=== PATIENT | male | born 1975 | race Caucasian/White ===

== ENCOUNTER 2016-06-26 17:02 | Inpatient (IN) ==
[2016-06-26] MEDS ORDERED: 0.9 % Sodium Chloride 1,000 ML IVC ONE (20:49)
--- NOTE | 2016-06-26 20:49 | Emergency Department Note ---
Disposition Clinical Impression: Hyperglycemia, New onset type 2 diabetes mellitus, Acute hyponatremia Stroke Qualifiers: CVA mechanism: unspecified Qualified Code(s): I63.9 - Cerebral infarction, unspecified TIA (transient ischemic attack) Qualifiers: Transient cerebral ischemia type: unspecified Qualified Code(s): G45.9 - Transient cerebral ischemic attack, unspecified Disposition: Admitted As Inpatient Condition: Serious Time of Disposition: 21:29 General Adult HPI - General Chief complaint: ED Dizziness Stated complaint: dizzy, high blood sugar Source: patient Limitations: no limitations Nursing Notes Reviewed: Yes Vital Signs Reviewed: Yes - History of Present Illness HPI Narrative: Patient is a 41-year-old male who presents with undiagnosed diabetes and on the glucose check of 520 when he presented to the [place] and in [facility] earlier today secondary to acute onset of generalized weakness and lightheadedness that started at 0930 hrs. today. Patient states he woke up at 0 6:30 he was fine. Patient states this never happened before. Patient denies any pain anywhere. Patient states smokes half pack a day, admits to occasional all use, and denies illicit drug use. Denies any sick contacts. Patient states he has been coughing for the past 4 weeks secondary to postnasal drip with productive yellow sputum denies fevers. Patient admits to polydipsia and polyuria for some time now unable to give exact timeline. Patient received CT head which showed no intracranial hemorrhage, IV normal saline therapy, labs were drawn which showed negative for DKA but patient was sent to us for insulin therapy. Patient left hospital AGAINST MEDICAL ADVICE and drove here. Pain Scale: 0 - Related Data Home Medications Medication Instructions Recorded Confirmed Ascorbate Calcium [Vitamin C] 500 mg PO DAILY 06/26/16 06/26/16 Cholecalciferol (D-3) [Vitamin D] 1,000 unit PO DAILY 06/26/16 06/26/16 Multivitamin [Multi-Day Vitamins] 1 each PO DAILY 06/26/16 06/26/16 Potassium 99 mg PO DAILY 06/26/16 06/26/16 Ranitidine HCl [Zantac 75] 75 mg PO DAILY 06/26/16 06/26/16 Vitamin B Complex 1 each PO DAILY 06/26/16 06/26/16 Allergies Allergy/AdvReac Type Severity Reaction Status Date / Time No Known Allergies Allergy Verified 06/26/16 10:40 All systems ED: reviewed and negative except as stated. Constitutional: Reports: chills, weakness. Denies: fever ENT ED: Reports: congestion Cardiovascular: Denies: chest pain, palpitations, dyspnea on exertion Respiratory: Reports: cough, sputum production. Denies: dyspnea, wheezes Gastrointestinal: Denies: abdominal pain, nausea, vomiting Genitourinary: Reports: frequency Past Medical History - Past Medical History Attestation: Yes The following information was validated with the patient. Source: patient Medical history: Reports: GERD Psychiatric history: Reports: no psych history - Social History Smoking Status: Current every day smoker Smokeless Tobacco Status: No Alcohol use: Reports: rarely Drug use: Reports: none Physical Exam Vital Signs Temperature 98.2 F 06/26/16 17:11 Pulse Rate 72 06/26/16 17:11 Respiratory Rate 18 06/26/16 17:11 Blood Pressure 152/101 06/26/16 17:11 O2 Sat by Pulse Oximetry 97 06/26/16 17:11 Temperature 98.2 F 06/26/16 17:11 Pulse Rate 72 06/26/16 17:11 Respiratory Rate 18 06/26/16 17:11 Blood Pressure 152/101 06/26/16 17:11 O2 Sat by Pulse Oximetry 97 06/26/16 17:11 Oxygen Delivery Oxygen Delivery Room Air -General Appearance: Patient is a 41-year-old male who is alert and oriented 3 and in no acute distress. Patient lying comfortably in bed -Neurological exam: Cranial nerves II-12 intact, no focal deficits observed, strength equal 5/5 left upper extremity, 4.5/5 in right upper extremity, patient has difficult time holding his right lower extremity compared to his left lower extremity. Patient reports decreased sensation to touch in his right lower extremity compared to his left lower extremity. Reflexes 2/4 without clonus bilaterally - Head Head exam: atraumatic, normocephalic, normal inspection - Eye Eye exam: Present: normal appearance, PERRL, EOMI, negative for scleral icterus negative for conjunctival pallor - ENT ENT exam: normal exam, normal oropharynx, mucous membranes moist - Neck Neck exam: Present: normal inspection, full ROM, trachea midline, negative JVD - Chest Chest inspection: Present: Patient has bilateral equal rise and fall of chest wall. Non-tender to palpation. - Respiratory Respiratory exam: Clear to auscultation bilaterally without wheezes rales or rhonchi Cardiovascular Cardiovascular exam: Present: regular rate, normal rhythm, normal heart sounds, without murmurs rubs or gallops. - Abdominal Exam Abdominal exam: Present: soft, nondistended, Non-Tender light and deep palpation in all quadrants. Bowel sounds normoactive throughout all 4 quadrants. Negative for hyper or hyperresonance. - Extremities Exam Extremities exam: Present: normal inspection, full ROM - Back Exam Back exam: Present: normal inspection, full ROM. Absent: CVA tenderness (R), CVA tenderness (L) - Psychiatric Psychiatric exam: Present: normal affect, normal mood - Skin Skin exam: Present: warm, dry, intact, normal color - General Limitations: no limitations General appearance: alert Course - Reevaluation(s) Reevaluation #1: Patient presents as after being seen at [facility] earlier today. Patient is workup for generalized weakness that started this morning. Patient was found to have elevated sugars of 529 glucose check with leading to new onset diabetes. Patient required IV insulin therapy which could not be done there and was recommended to be transferred to us for therapy. Patient left there AGAINST MEDICAL ADVICE and had his daughter drive him over here. Patient received CT head which showed no intracranial hemorrhage, IV normal saline therapy, labs were drawn which showed negative for DKA but patient was sent to us for insulin therapy. Troponin negative and no anion gap acidosis negative hydroxybutyric acid, joint and the patient is not in DKA. Patient shows worsening neurological deficits since being seen earlier today at [place]. Assessment: Stroke versus TIA, new onset diabetes mellitus type 2. Plan: Repeat EKG, start patient on IV normal saline, patient's blood sugar recheck here as glucose of 220. 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 Patient sent for head CT, EKG taken check or any change in cardiac activity. Current plan is for admission for neurology follow-up secondary to stroke/TIA and treatment for hyperglycemia. Time: 21:17 - Consultations Consultation #1: Dr. Patterson has accepted for admission at 2127 hrs. Time: 21:29 Vital Signs Temperature 98.2 F 06/26/16 17:11 Pulse Rate 72 06/26/16 17:11 Respiratory Rate 18 06/26/16 17:11 Blood Pressure 152/101 06/26/16 17:11 O2 Sat by Pulse Oximetry 97 06/26/16 17:11 Temperature 98.4 F 06/27/16 00:07 Pulse Rate 63 06/27/16 00:07 Respiratory Rate 18 06/27/16 00:07 Blood Pressure 154/98 06/27/16 00:07 O2 Sat by Pulse Oximetry 97 06/27/16 00:07 Oxygen Delivery Oxygen Delivery Room Air Medical Decision Making - Medical Records Medical records reviewed: Yes I reviewed the patient's medical records. Labs taken - Lab Data Lab results narrative: Intake & Output 06/23/16 06/24/16 06/25/16 06/26/16 23:59 23:59 23:59 23:59 Weight 127.913 kg Laboratory Results - last 48 hr 06/26/16 17:20 POC Glucose 235 H Lab Results 06/26/16 Range/Units 17:20 POC Glucose 235 H (58-89) Attestation Statement - Attestation Attestation: I, Drew Black, examined this patient and my medical decision-making was reviewed with the PERL DEVELOPER/PA/Advanced Practice Nurse/Resident Physician. I agree with the documented findings, disposition and treatment plan as described except to the extent set forth below. 41-year-old male presents to the emergency department with concerns of lightheadedness and elevated blood sugar. Patient was not evaluated at a different emergency department this morning and was diagnosed with possible CVA and hyperglycemia and recommended that he transferred to [facility] for further evaluation with MRI and neurology. Patient refused and returned home however his symptoms did not improve. Patient states that he has slurred speech, weakness and paresthesias of the right upper extremity and the right lower extremity. There had symptoms like this before. Is not intoxicated. No recent trauma. Onset of symptoms a 6:30 AM. Physical exam the patient has weakness of the right upper extremity and right lower extremity at 3 out of 5 compared to the left is 5 out of 5. Patient has mild right-sided facial droop. He has slurred speech on exam. Pt is outside of the window for TPA. Patient given aspirin at emergency department this morning. CT of the head is negative for acute bleed. Patient be admitted for likely CVA.
[2016-06-26] MEDS: Nicotine 14 MG PATCH.TD24 TD SCH (22:55)
[2016-06-27] MEDS ORDERED: Naloxone 0.4 MG/ML INJ IVP PRN (01:13)
[2016-06-27] MEDS ORDERED: D5% in Water 1,000 ML IVC PRN (01:13)
[2016-06-27] MEDS ORDERED: *HR* Promethazine 25 MG/ML VIAL IVP PRN (01:13)
[2016-06-27] MEDS ORDERED: *HR* Dextrose 50 % in Water (Syg) 50 ML SYRINGE IVP PRN (01:13)
[2016-06-27] MEDS ORDERED: Dextrose Gel 15 GM PO PRN ×2 (01:13)
--- NOTE | 2016-06-27 01:46 | Internal Med History&Physical ---
<Isabella Littlejohn - Last Filed: 06/27/16 05:45> Date of Encounter: 06/27/16 Time of Encounter: 01:29 Assessment and Plan (1) Stroke Current visit: Yes Status: Suspected CThead - for acute bleed, due to symptoms and risk factors likely thromboembolic vs tia BP 154/98 glucose 520>235, A1C 12.7 MRI ECHO carotid Doppler asa atorvastatin glucose monitoring lipid panel supportive care Qualifiers: CVA mechanism: unspecified Qualified Code(s): I63.9 - Cerebral infarction, unspecified (2) New onset type 2 diabetes mellitus Current visit: Yes Status: Acute glucose 520>230, A1C 12.7 insulin sliding scale NPO for testing, then diabetic diet recommend outpt follow up for close monitoring and diabetes control (3) Hypertension Current visit: Yes Status: Acute BP 154/98 permissive htn for now Qualifiers: Hypertension type: essential hypertension Qualified Code(s): I10 - Essential (primary) hypertension (4) GERD (gastroesophageal reflux disease) Current visit: Yes Status: Acute ppi Qualifiers: Esophagitis presence: without esophagitis Qualified Code(s): K21.9 - Gastro -esophageal reflux disease without esophagitis (5) Tobacco abuse Current visit: Yes Status: Acute nicotine patch prn (6) Obesity, morbid, BMI 40.0-49.9 Current visit: Yes Status: Acute (7) Hyperglycemia Current visit: Yes Status: Acute 520>235 sliding scale close glucose monitoring (8) Acute hyponatremia Current visit: Yes Status: Acute 134 monitor Internal Medicine - H&P: HPI Chief complaint: weakness Admitted From: Home Plans for Post Hospital Care: Home History of present illness: Mr. Rodriguez is a 41 year old male c/o weakness. PMHx GERD, on and off smoker of 1 /2-1ppd for about 15 years, does not see PCP. Pt c/o right sided weakness, with dizziness starting in the morning on . Pt states he woke up around 6: 30 am feeling fine, as he was getting ready for work he started getting a headache, feeling dizzy and tingling around his mouth and was having difficulty getting dressed secondary to weakness. Pt thought his blood sugar might my low, had breakfast and drank a pop which made symptoms worse. He presented to [place] [facility]. After being given fluids he states symptoms did not fully resolve but he felt better so he left AMA. At home a few hours later symptoms were worse with increased weakness from earlier in the day and slurring of his speech. Pt states he has never had anything like this before, but has had some numbness and metallic taste in his mouth for about one week which he attributed to his reflux. Pt does not see a physician and has never had any previous diagnosis. Pt continues to have right sided weakness, and decreased sensation and difficulty controlling his r arm. headache has somewhat resolved, continues to have some dizziness and rightsided numbness. Pt denies LOC, loss of vision, chest pain, palpitation, SOB, change in urinary or bowel habits. Past Med Surg Social Fam HX - Past Medical History Medical history: GERD Psychiatric history: no psych history - Past Surgical History Surgical History: herniorrhaphy - Social History Smoking Status: Current every day smoker Packs per day: 1/2-1ppd Smokeless Tobacco Status: No Alcohol use: rarely Drug use: none Occupational status: employed Current living situation: Home Activity Level: Independent ambulation Recent Out of Country Travel Within the Last 8 Weeks: No Exposure or Possible Exposure to Illness During Travel: No - Family History Mother Living Status: Still Living Hx Family Cardiac Disorders: Yes (CHF HTN HLD) Hx Family Endocrine Disorder: Yes (DM) Internal Medicine - H&P: Meds Ascorbate Calcium [Vitamin C] 500 mg PO DAILY 06/26/16 [History] Cholecalciferol (D-3) [Vitamin D] 1,000 unit PO DAILY 06/26/16 [History] Multivitamin [Multi-Day Vitamins] 1 each PO DAILY 06/26/16 [History] Potassium 99 mg PO DAILY 06/26/16 [History] Ranitidine HCl [Zantac 75] 75 mg PO DAILY 06/26/16 [History] Vitamin B Complex 1 each PO DAILY 06/26/16 [History] Allergies No Known Allergies Allergy (Verified 06/26/16 10:40) All Systems PM: A 10-system review of systems was performed and is negative for pertinent findings except as documented above in the HPI. - Constitutional Constitutional: fatigue, weakness, weight loss (80lb weightloss in past 4 months ), no falls - EENT Eyes: no blurry vision, no change in vision, no loss of vision, no seeing flashes - Cardiovascular Cardiovascular ROS IM: lightheadedness, no chest pain, no diaphoresis, no dyspnea, no dyspnea on exertion, no edema, no palpitations - Respiratory Respiratory: no cough, no dyspnea, no dyspnea on exertion - Gastrointestinal Gastrointestinal: no abdominal pain, no diarrhea, no hematemesis, no hematochezia, no melena, no nausea, no vomiting - Genitourinary Genitourinary ROS male: no dysuria, no hematuria, no urinary frequency, no urinary hesitancy, no urinary urgency - Musculoskeletal Musculoskeletal ROS IM: muscle weakness, numbness - Integumentary Integumentary IM: no rash, no unusual bruising - Neurological Neurological ROS: abnormal gait, abnormal movements, abnormal speech, confusion , dizziness, focal weakness, headache(s), lack of coordination, numbness, vertigo, weakness, no abnormal hearing - Constitutional Vitals: Temp Pulse Resp BP Pulse Ox 98.4 F 63 18 154/98 97 06/27/16 00:07 06/27/16 00:07 06/27/16 00:07 06/27/16 00:07 06/27/16 00:07 General appearance: Present: A&O X 3, no acute distress, obese, answers questions appropriately - Head Head exam: Present: atraumatic, normocephalic - Eye Eye exam: Present: EOMI, PERRL, conjuntiva pink, sclera anicteric Pupils: Present: PERRL - ENT ENT exam: Present: mucous membranes moist - Neck Neck exam general surgery: Present: supple, trachea midline. Absent: lymphadenopathy - Respiratory Respiratory exam: Present: CTAB. Absent: accessory muscle use, rales, rhonchi, wheezes - Cardiovascular Cardiovascular exam: Present: RRR, +S1, +S2. Absent: diastolic murmur, gallop, rubs, systolic murmur - GI/Abdominal GI/Abdominal exam: Present: normal bowel sounds, soft, no peritoneal signs. Absent: distended, tenderness - Extremities Exam Extremities exam: Present: warm, radial pulses palpable and symetrical. Absent : calf tenderness, cyanotic, pedal edema - Back Exam Back exam: Absent: CVA tenderness (L), CVA tenderness (R) - Neurological Exam Neurological exam: Present: motor sensory deficit, oriented X3, facial droop ( Rsided), speech deficit - Expanded Neurological Exam Neurological exam expanded: Present: expressive aphasia, memory loss-recent event Patient oriented to: Present: person, place, time Speech: Present: expressive aphasia, garbled, slurred Cranial Nerves: EOM's intact PM: Normal, gag reflex PM: Normal, nystagmus PM: Normal, tongue deviation PM: Normal Ataxia: Present: yes Cerebellar function: finger to nose: Abnormal Right, heel to [place]: Abnormal Right Upper motor neuron: Lc neglect: Abnormal Right Sensory exam: LE 2 point discrimination: Abnormal Right, lower extremity light touch: Abnormal Right, lower extremity pin prick: Abnormal Right, lower extremity temperature: Abnormal Right, UE 2 point discrimination: Abnormal Right , upper extremity light touch: Abnormal Right, upper extremity pin prick: Abnormal Right, upper extremity temperature: Abnormal Right Neuro motor strength exam: LUE: 5, RUE: 3, LLE: 5, RLE: 4 DTR: patellar (L): 2+, patellar (R): 2+ Coma Scale Eye Opening: Spontaneous Coma Scale Motor Response: Obeys Commands Coma Scale Verbal Response: Oriented Coma Scale Total: 15 - Psychiatric Psychiatric exam: Present: normal affect, normal mood - Skin Skin exam: Present: dry, intact <Mudduluru,Madhusudha R - Last Filed: 06/27/16 12:35> Date of Encounter: 06/27/16 Internal Medicine - H&P: HPI History of present illness: Mr. Rodriguez is a 41 year old male All Systems PM: A 10-system review of systems was performed and is negative for pertinent findings except as documented above in the HPI. - Constitutional Vitals: Temp Pulse Resp BP Pulse Ox 98.3 F 65 18 138/83 96 06/27/16 07:00 06/27/16 07:00 06/27/16 07:00 06/27/16 07:00 06/27/16 08:37 Internal Med - H&P Results - Labs CBC & Chem 7: 06/27/16 05:39 Labs: BMP 06/27/16 05:39 Sodium 137 Potassium 4.1 Chloride 106 Carbon Dioxide 22 BUN 16 Creatinine 1.01 Glucose 337 H Calcium 8.5 L Cardiac Enzymes 06/27/16 Range/Units 05:39 Troponin I 0.00 (0-0.03) ng/mL Liver Function 06/27/16 Range/Units 05:39 Total Bilirubin 1.1 D (0.2-1.2) mg/dL AST 27 (5-34) Units/L ALT 48 (0-55) Units/L Alkaline Phosphatase 72 (38-126) Units/L Albumin 3.0 L (3.5-5.0) g/dL - Attending Attestation I performed a history and physical examination of the patient and discussed management with the resident. I reviewed the residents notes and agree with the documented findings and plan of care. 41 Y/M with h/o GERD, presents with right sided weakness, confusion and odd speech. O/E: right Upper (3/5) and lower extremity (4/5) weakness. CT head: No acute intracranial abnormalities. Labs: Glucose: 520 in the ER at [facility]. A1C: 12.7%. EKG: NSR. A/P: CVA: MRI brain / MRA; Echo; Carotid Doppler; lipid panel. ASA; Statin; Neurology consult, PT consult. New diagnosis of DM:Diabetes education; Insulin sliding scale, possibly can go home with oral meds. Needs f/ u with PCP for management of DM
[2016-06-27] MEDS: 0.9 % Sodium Chloride 1,000 ML IVC SCH ×3 (01:52→15:30)
[2016-06-27 02:17] LABS: INR 1.2; Prothrombin Time 13.2 Seconds (9.4-12.1)
[2016-06-27 02:19] LABS: Activated Partial Thrombo Time 30.1 Seconds (26.0-36.0)
[2016-06-27] MEDS ORDERED: Insulin LISPRO 300 UNITS/3 ML VIAL SQ SCH (06:00)
[2016-06-27 06:35] LABS: Alanine Aminotransferase 48 Units/L (0-55); Alkaline Phosphatase 72 Units/L (38-126); Aspartate Amino Transferase 27 Units/L (5-34); BUN/Creatinine Ratio 16 (6-26); Bilirubin,Total 1.1 mg/dL (0.2-1.2); Blood Urea Nitrogen 16 mg/dL (8-26); Calcium 8.5 mg/dL (8.6-10.8); Carbon Dioxide 22 mEq/L (19-29); Chloride 106 mEq/L (98-109); Chol/HDL Ratio 5.8 (0-4.9); Cholesterol 174 mg/dL (< 200); Glucose 337 mg/dL (70-99); HDL Cholesterol 30 mg/dL (40-59); LDL Cholesterol,Calculated 95 mg/dL (0-99); Magnesium 1.6 mg/dL (1.6-2.6); Osmolality,Calculated 298 (280-300); Potassium 4.1 mEq/L (3.5-4.5); Sodium 137 mEq/L (136-145); Triglycerides 243 mg/dL (< 150); eGFR For African Americans > 60 (> 60); eGFR For Non-African Americans > 60 (> 60)
[2016-06-27] MEDS: *HR* Enoxaparin 40 MG/0.4 ML SYRINGE SQ SCH (06:55)
[2016-06-27] MEDS: Nicotine 14 MG PATCH.TD24 TD SCH (08:53)
[2016-06-27] MEDS ORDERED: Pantoprazole 40 MG VIAL IVP SCH (09:00)
--- NOTE | 2016-06-27 09:26 | Event Note ---
Date of Encounter: 06/27/16 Time of Encounter: 07:15 I performed a history and physical examination of the patient and discussed management with the resident (Dr Littlejohn). I reviewed the residents notes and agree with the documented findings and plan of care. 41 Y/M with h/o GERD, presents with right sided weakness, confusion and odd speech. O/E: right Upper (3+/5) and lower extremity (4/5) weakness. CT head: No acute intracranial abnormalities. Labs: Glucose: 520 in the ER at [facility]. A1C: 12.7%. EKG: NSR. A/P: CVA: MRI brain / MRA; Echo; Carotid Doppler; lipid panel. ASA; Statin; Neurology consult, PT/speech therapy consult. New diagnosis of DM:Diabetes education; Insulin sliding scale, possibly can go home with oral meds. Needs f/u with PCP for management of DM
--- NOTE | 2016-06-27 11:12 | Event Note ---
Date of Encounter: 06/27/16 Time of Encounter: 11:05 41/M PCP: No PCP Brief PMH : Healthy person except morbid obesity. 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 HPI: Patient was experiencing generalized fatigue for more than 3 days. He was experiencing worsening dizziness which was persistent in nature since yesterday afternoon. His mother insisted him to go to emergency room at [facility]. Patient was seen in the emergency room and [facility] and recommended transfer to this hospital. Patient signed out AMA from emergency room at [facility]. Physician from emergency room called patient to update results. At that point a conversation between the physician and patient was not appropriate. The physician strongly suspected that patient has possibility of stroke and that is the reason they asked patient to come back to emergency room. Patient was reevaluated in the emergency room at [facility] and was sent to this hospital for further management. Patient was evaluated in the emergency room and admitted for possibility of a CVA. Vitals: Afebrile, 65/m, 18 breaths per minute, 138/83 and 96% on room air On examination: I have examined this patient at length. Examination of her, eyes, ears, nose, throat, cervical area and oral cavity does not show any abnormality. Examination of heart is within normal limit. I did not hear any abnormal murmur. Lung sounds are bilaterally equal. Examination of abdomen is benign. Brief neurological examination is suggestive of a right upper extremity power 3/ 5, left lower extremity power 4/5. Sensation intact. No bladder or bowel incontinence. DTR ++. Imaging: CT head: Negative for bleed Noted that MRI is suggestive of an acute left pontine infarct. Echo: Pending Ultrasound carotid: Pending Labs: POC: 488 Assessment and plan: Acute left pontine infarct: Out of TPA window. Newly diagnosed possible type 2 diabetes mellitus. Hyperlipidemia. Morbid obesity Plan: -ASA/statin -PT/OT/ST -Awaiting for imaging studies. -Neurology evaluation: Young stroke workup -Sliding scale for now. for newly onset diabetes. -We will follow neurology recommendations. -DVT prophylaxis: Lovenox Medical decision making: This patient has [id number] risk of worsening in spite of being on appropriate medication.
--- NOTE | 2016-06-27 12:45 | Neurology - Consult Note ---
Date of Encounter: 06/27/16 Time of Encounter: 12:42 Assessment and Plan (1) Stroke Current Visit: Yes Status: Suspected Patient has DM, HTN, morbid obesity, hypertriglyceride, who developed acute onset of right hemiparesis, hemiparesthesia, speech difficulty, and balance difficulty as a result of the right sided weakness. MRI of brain confirmed left pontine infarct, likely secondary to small vessel lacunar infarct. Will certainly need stroke work up, including echocardiography, carotid artery duplex. Since the stroke occurred within the territory of posterior circulation would also recommend CT Angio of brain as well. Treat hyperlipidemia. Weight loss, may need sleep study as outpatient. Will keep on Aspirin Qualifiers: CVA mechanism: unspecified Qualified Code(s): I63.9 - Cerebral infarction, unspecified History of Present Illness Chief complaint: right sided weakness, dizziness HPI: Mr. Rodriguez is a 41 year old male with PMH significant for morbid obesity, newly found HTN DM hyperlipidemia who developed acute onset of right sided weakness, dizziness and difficulty walking. Patient woke up yesterday morning with right sided weakness and dizziness, described as difficulty walking. initial CT of head showed no acute intracranial abnormality. Today MRI of brain showed acute left pontine infarct. Patient still has weakness to the right arm and leg, and still dizzy. No vertigo however. has no significant medical history until now. 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 Past Med Surg Social Fam HX - Past Medical History Medical history: GERD Psychiatric history: no psych history - Past Surgical History Surgical History: herniorrhaphy - Social History Smoking Status: Current every day smoker Packs per day: 1/2-1ppd Smokeless Tobacco Status: No Alcohol use: rarely Drug use: none - Family History Mother History Unknown: Yes Name: Yadira Castillo Age: 60 Living Status: Still Living Hx Family Cardiac Disorders: Yes (CHF HTN HLD) Hx Family Endocrine Disorder: Yes (DM) Medications and Allergies Ascorbate Calcium [Vitamin C] 500 mg PO DAILY 06/26/16 [History] Cholecalciferol (D-3) [Vitamin D] 1,000 unit PO DAILY 06/26/16 [History] Multivitamin [Multi-Day Vitamins] 1 each PO DAILY 06/26/16 [History] Potassium 99 mg PO DAILY 06/26/16 [History] Ranitidine HCl [Zantac 75] 75 mg PO DAILY 06/26/16 [History] Vitamin B Complex 1 each PO DAILY 06/26/16 [History] Allergies No Known Allergies Allergy (Verified 06/26/16 10:40) All Systems: A 10-system review of systems was performed and is negative for pertinent findings except as documented above in the HPI. Physical Examination - Vital Signs Vital Signs: Initial Vital Signs Temp Pulse Resp BP Pulse Ox 98.2 F 72 18 152/101 97 06/26/16 17:11 06/26/16 17:11 06/26/16 17:11 06/26/16 17:11 06/26/16 17:11 - Constitutional General appearance: comfortable - Neurologic Sensorimotor examination: other (reduced pinprick and touch sensation to the right face, arm and leg) Motor examination - right side: 4/5: deltoids, biceps, triceps, wrist flexion, wrist extension, cone machine operator, hip flexors, tibialis Anterior, quadriceps, toe extension (EHL), plantarflexion Motor examination - left side: 5/5: deltoids, biceps, triceps, wrist flexion, wrist extension, hip flexors, cone machine operator, quadriceps, tibialis Anterior, toe extension (EHL), plantarflexion Detailed sensory examination: other (Reduced pinprick, touch sensation to the right side) Reflexes: Biceps: 1+, Triceps: 1+, Brachioradialis: 1+, Patella: 1+, Achilles: 1 + Mental Status Examination: awake, alert, oriented to person, oriented to place, oriented to time, follows commands appropriately, answers questions appropriately, no agnosia, no aphasia, no aproxia Cranial nerve examination: PERRL, EOMI, visual quintanilla intact, corneal reflexes brisk symmetrically, sensory to face intact (reduced pinprick to the right face) , no facial asymmetry is present (right facial flattening), hearing is intact symmetrically, soft palate elevates bilaterally upon phonation, gag reflex intact, tongue protrudes midline (to the right side) Results - Laboratory Findings CBC and BMP: 06/27/16 05:39 Abnormal lab findings: Abnormal lab results PT 13.2 Seconds (9.4-12.1) H 06/27/16 01:44 Glucose 337 mg/dL (70-99) H 06/27/16 05:39 POC Glucose 320 (58-89) H 06/27/16 06:02 Calcium 8.5 mg/dL (8.6-10.8) L 06/27/16 05:39 Albumin 3.0 g/dL (3.5-5.0) L 06/27/16 05:39 Albumin/Globulin Ratio 1.0 (1.1-2.2) L 06/27/16 05:39 Triglycerides 243 mg/dL (< 150) H 06/27/16 05:39 VLDL Cholesterol, Calc 49 mg/dL (< 31) H 06/27/16 05:39 HDL Cholesterol 30 mg/dL (40-59) L 06/27/16 05:39 Cholesterol/HDL Ratio 5.8 (0-4.9) H 06/27/16 05:39 Consult Discharge Plan - Plan Referrals: NO,PCP [Primary Care Provider] -
[2016-06-27] MEDS: Aspirin Enteric Coated 81 MG Tablet PO SCH (13:09)
[2016-06-27] MEDS: Insulin LISPRO 300 UNITS/3 ML VIAL SQ SCH ×3 (13:09→22:08)
--- NOTE | 2016-06-27 16:24 | ECHO - Doppler Report ---
Echo with Saline Contrast Name: Virgilio Rodriguez Date of Study: 06/27/2016 Date: 1975 Ht: 71.0 in Medical Record#: [id number] Age: 41 Wt: 306.0 lb Gender: Male BSA: 2.53 Order #: [id number] Location: [facility] Room #: 2NE34 Reading Physician: Joyce Torres DO Tax Intern: Aram Weinberg RUT Ordering Physician: Isabella Littlejohn DO Primary Physician: None Indications: Cerebrovascular Accident Impressions: LVEF 60%. Normal left ventricular size and systolic function. Normal diastolic function of the left ventricle. Normal right ventricular size and function. Mild pulmonic regurgitation. No pulmonary hypertension. No PFO with saline contrast. Left Ventricular Wall Motion: Rest Echo Findings All wall segments showed normal motion. Findings: Study Quality * Technically adequate exam. ECG Findings * Normal sinus rhythm. Left Ventricle * LVEF 60%. * Normal LV chamber size, wall thickness and function. * Normal left ventricular diastolic function. Left Atrium * Normal left atrial size. Mitral Valve * Normal mitral valve structure. * No mitral stenosis. * No mitral regurgitation. Aorta * Normally sized aortic root. Tricuspid Valve * No tricuspid regurgitation. * Normal tricuspid valve structure. Pulmonic Valve * Pulmonic valve is not well visualized. * No pulmonic stenosis. * Mild pulmonic regurgitation. Pulmonary Artery * Pulmonary artery not well visualized. Aortic Valve * Aortic valve not well visualized. * No aortic stenosis. * No aortic regurgitation. Right Ventricle * Normal right ventricular structure and function. Right Atrium * Normal right atrial size. Interatrial Septum * No PFO with saline contrast. IVC * The IVC is not well evaluated. Pericardium * There is no pericardial effusion present. History Diabetes History of Smoking Years 32 Packs 1 Contrast: Agitated saline 20 ml. Measurements: BP: 147/ 81 2D Normal Values RVIDd: 3.10 cm <2.7 cm IVSd: 1.11 cm 0.6 - 1.0 cm LVIDd: 4.68 cm 3.7 - 5.6 cm LVPWd: 1.06 cm 0.6 - 1.1 cm LVIDs: 3.21 cm 1.5 - 3.6 cm AO: 2.60 cm < 4.0 cm LA: 3.90 cm 2.0 - 4.0cm %FS: 31.40 cm >25 % LA volume: 40 Mitral Valve Peak E:1.12 m/sec Peak A:.59 m/sec E/A Ratio:1.9 Peak E' Lat Rikki:11.7 cm/s Peak E' Med Rikki:9.9 cm/s E/E' Lat Ratio:9.6 E/E' Med Ratio:11.3 Tricuspid Valve TV Regurg Peak Grad: 8.00mmHg TV Regurg Peak Rikki: 1.44m/sec Updated by Joyce Torres on 06/27/2016 4:07:53 PM electronically signed on 06/27/2016 4:18:56 PM with status of Final Wall Motion Newman: 1=Normal, 2=Hypokinesis, 3=Akinesis, 4=Dyskinesis, 5=Aneurysmal, 6=Hyperkinetic, X=Not Visualized (Blank)=Missing
--- NOTE | 2016-06-28 05:35 | Electrocardiograph Report ---
[address] [address] Test Date: 2016-06-26 Pat Name: Virgilio Rodriguez Department: 104 Room: 2N4 Gender: M Sap Technical Developer: YANIRA : 1975 Requested By: David Hull Order Number: [id number] Reading MD: Rad Butterfield MD Measurements Intervals [place] Rate: 61 P: 43 SC: 164 QRS: 26 QRSD: 100 T: 13 QT: 409 QTc: 413 Interpretive Statements SINUS RHYTHM Electronically Signed On 06-28-2016 5:34:26 EDT by Rad Butterfield MD
[2016-06-28 05:49] LABS: Basophils # 0.1 K/mcL (0.0-0.2); Basophils % 0.6 %; Eosinophils # 0.2 K/mcL (0.0-0.6); Eosinophils % 2.1 %; Hemoglobin 15.2 g/dL (12.9-16.9); Immature Granulocytes % 1.4 % (0-4); Lymphocytes # 2.2 K/mcL (0.6-4.6); Mean Corpuscular HGB Conc 33.8 g/dL (31.6-35.5); Mean Corpuscular Hemoglobin 28.7 pg (28.0-33.3); Mean Corpuscular Volume 85.1 fL (83.0-100.0); Mean Platelet Volume 10.6 fL (9.4-12.4); Monocytes # 0.7 K/mcL (0.0-1.3); Monocytes % 7.7 %; Neutrophils # 5.4 K/mcL (1.6-8.9); Platelet Count 158 K/mcL (140-400); Red Blood Count 5.29 M/mcL (4.19-5.50); Red Cell Distribution Width 12.4 % (11.5-14.5); Segmented Neutrophils % 62.2 %
[2016-06-28 06:09] LABS: Alanine Aminotransferase 47 Units/L (0-55); Albumin 2.9 g/dL (3.5-5.0); Alkaline Phosphatase 66 Units/L (38-126); Aspartate Amino Transferase 31 Units/L (5-34); BUN/Creatinine Ratio 17 (6-26); Blood Urea Nitrogen 13 mg/dL (8-26); Calcium 8.2 mg/dL (8.6-10.8); Carbon Dioxide 20 mEq/L (19-29); Chloride 110 mEq/L (98-109); Globulin 2.9 g/dL (2.4-3.5); Glucose 240 mg/dL (70-99); Osmolality,Calculated 296 (280-300); Potassium 3.9 mEq/L (3.5-4.5); Sodium 139 mEq/L (136-145); Total Protein 5.8 g/dL (6.0-8.3); eGFR For African Americans > 60 (> 60); eGFR For Non-African Americans > 60 (> 60)
[2016-06-28] MEDS: *HR* Enoxaparin 40 MG/0.4 ML SYRINGE SQ SCH (06:31)
[2016-06-28] MEDS: Aspirin Enteric Coated 81 MG Tablet PO SCH (07:57)
[2016-06-28] MEDS: Nicotine 14 MG PATCH.TD24 TD SCH (07:57)
[2016-06-28] MEDS: Famotidine 20 MG TABLET PO SCH (07:57)
[2016-06-28] MEDS: Insulin LISPRO 300 UNITS/3 ML VIAL SQ SCH ×4 (07:58→20:34)
--- NOTE | 2016-06-28 10:25 | Neurology Progress Note ---
Date of Encounter: 06/28/16 Time of Encounter: 10:23 Assessment and Plan (1) Stroke Current Visit: Yes Status: Suspected Qualifiers: CVA mechanism: unspecified Qualified Code(s): I63.9 - Cerebral infarction, unspecified Subjective Principal diagnosis: weakness, dizziness, headache Interval history: Pt seen and examined. He states he is doing much better today and is nearly back to full strength and denies any numbess/tingling. He also states his speech is "95%" better but still hears "saliva sounds" when talking. He was able to ambulate early today with minimal difficulty. Has no issues with chest pain, nausea, vomiting, shortness of breath. Objective - Constitutional Vitals: Temp Pulse Resp BP Pulse Ox 98.3 F 51 16 136/75 97 06/28/16 07:00 06/28/16 07:00 06/28/16 07:00 06/28/16 07:00 06/28/16 07:00 General appearance: Present: cooperative, pleasant, no acute distress, answers questions appropriately - Head Head exam: Present: atraumatic, normocephalic - Eye Eye exam: Present: EOMI, PERRL, conjuntiva pink, sclera anicteric - Extremities Exam Extremities exam: Present: warm, radial pulses palpable and symetrical. Absent : calf tenderness, cyanotic, pedal edema - Neurological Exam Sensorimotor examination: Present: intact Motor examination - right side: 5/5: deltoids, biceps, triceps, wrist flexion, wrist extension, instructor technical training, hip flexors Motor examination - left side: 5/5: deltoids, biceps, triceps, wrist flexion, wrist extension, hip flexors, instructor technical training Sensation intact: Present: intact Mental Status Examination: Present: awake, alert, oriented to person, oriented to place, oriented to time, follows commands appropriately, answers questions appropriately, no agnosia, no aphasia, no aproxia Cranial nerve examination: Present: PERRL, EOMI, visual quintanilla intact, corneal reflexes brisk symmetrically, sensory to face intact, no facial asymmetry is present, hearing is intact symmetrically, soft palate elevates bilaterally upon phonation, gag reflex intact. Absent: no dysarthria (very mild) Results - Laboratory Findings CBC and BMP: 06/28/16 05:15 06/28/16 05:15 Abnormal lab findings: Abnormal lab results PT 13.2 Seconds (9.4-12.1) H 06/27/16 01:44 Chloride 110 mEq/L (98-109) H 06/28/16 05:15 Glucose 240 mg/dL (70-99) H 06/28/16 05:15 POC Glucose 187 (58-89) H 06/27/16 21:26 Calcium 8.2 mg/dL (8.6-10.8) L 06/28/16 05:15 Serum Total Protein 5.8 g/dL (6.0-8.3) L 06/28/16 05:15 Albumin 2.9 g/dL (3.5-5.0) L 06/28/16 05:15 Albumin/Globulin Ratio 1.0 (1.1-2.2) L 06/28/16 05:15 Triglycerides 243 mg/dL (< 150) H 06/27/16 05:39 VLDL Cholesterol, Calc 49 mg/dL (< 31) H 06/27/16 05:39 HDL Cholesterol 30 mg/dL (40-59) L 06/27/16 05:39 Cholesterol/HDL Ratio 5.8 (0-4.9) H 06/27/16 05:39 Consult Discharge Plan - Plan Referrals: NO,PCP [Primary Care Provider] -
--- NOTE | 2016-06-28 12:12 | Neurology Progress Note ---
Date of Encounter: 06/28/16 Time of Encounter: 12:10 Assessment and Plan (1) Stroke Current Visit: Yes Status: Suspected Stroke in young, however, this appears to be small vessel pontine lacunar infarct secondary to HTN and DM. also has morbid obesity and may have untreated JC. May benefit from hypercoagulable state work up but generally speaking the pontine lacunar infarct is usually related to small vessel etiology other than embolic phenomenon. Will obtain hypercoagulable state and the patient is to follow up in neurology in 2-3 weeks to follow up with the result. Also will obtain sleep study to assess untreated JC. This will be done as an outpatient. Continue Aspirin 81mg daily Qualifiers: CVA mechanism: unspecified Qualified Code(s): I63.9 - Cerebral infarction, unspecified Subjective Principal diagnosis: weakness, dizziness, headache Interval history: Patient seen and examined. 41 year old man with HTN, DM, and obesity who developed what appears to be left pontine infarct, likely secondary to small vessel etiology. Overnight, he has been doing much better, and right sided paresis facial droop, speech and tongue deviation all improved. Ambulating no difficulty. BP very well controlled. No patient has no discomforts. Echocardiography showed normal LVEF 60%. No regional wall motion abnormality. no Valvular disease, and no PFO with saline contrast. CTA of neck reported normal study. Objective - Constitutional Vitals: Temp Pulse Resp BP Pulse Ox 98.3 F 51 16 136/75 97 06/28/16 07:00 06/28/16 07:00 06/28/16 07:00 06/28/16 07:00 06/28/16 07:00 General appearance: Present: cooperative, pleasant, no acute distress, answers questions appropriately - Neurological Exam Sensorimotor examination: Present: intact Motor Examination: Present: grossly full strength in all extremities Motor examination - right side: 5/5: deltoids, biceps, triceps, wrist flexion, wrist extension, artificial fly tier, hip flexors, tibialis Anterior, quadriceps, toe extension (EHL), plantarflexion Motor examination - left side: 5/5: deltoids, biceps, triceps, wrist flexion, wrist extension, hip flexors, artificial fly tier, quadriceps, tibialis Anterior, toe extension (EHL), plantarflexion Sensation intact: Present: intact Posture: Present: other (None) Reflexes: Biceps: 1+, Triceps: 1+, Brachioradialis: 1+, Patella: 1+, Achilles: 1 + Mental Status Examination: Present: awake, alert, oriented to person, oriented to place, oriented to time, follows commands appropriately, answers questions appropriately, no agnosia, no aphasia, no aproxia Cranial nerve examination: Present: PERRL, EOMI, visual quintanilla intact, corneal reflexes brisk symmetrically, sensory to face intact, no facial asymmetry is present, hearing is intact symmetrically, soft palate elevates bilaterally upon phonation, gag reflex intact. Absent: no dysarthria (very mild) Results - Laboratory Findings CBC and BMP: 06/28/16 05:15 06/28/16 05:15 Abnormal lab findings: Abnormal lab results PT 13.2 Seconds (9.4-12.1) H 06/27/16 01:44 Chloride 110 mEq/L (98-109) H 06/28/16 05:15 Glucose 240 mg/dL (70-99) H 06/28/16 05:15 POC Glucose 187 (58-89) H 06/27/16 21:26 Calcium 8.2 mg/dL (8.6-10.8) L 06/28/16 05:15 Serum Total Protein 5.8 g/dL (6.0-8.3) L 06/28/16 05:15 Albumin 2.9 g/dL (3.5-5.0) L 06/28/16 05:15 Albumin/Globulin Ratio 1.0 (1.1-2.2) L 06/28/16 05:15 Triglycerides 243 mg/dL (< 150) H 06/27/16 05:39 VLDL Cholesterol, Calc 49 mg/dL (< 31) H 06/27/16 05:39 HDL Cholesterol 30 mg/dL (40-59) L 06/27/16 05:39 Cholesterol/HDL Ratio 5.8 (0-4.9) H 06/27/16 05:39 Consult Discharge Plan - Plan Referrals: NO,PCP [Primary Care Provider] -
--- NOTE | 2016-06-28 12:36 | Carotid Imaging Report ---
Carotid Duplex Patient Name:Virgilio Rodriguez Order Number:[id number] Procedure Date:06/27/2016 Date:1975Age:41 yrs Gender:Male Location:[facility] Room #: 2NE34 Machine Tech:Aram Weinberg RDCS Referring MD:Isabella Littlejohn DO control supervisor:None Reading MD:Migel Julian MD , FACS Primary Indications:CVA Risk Factors Yes/No Diabetes Yes Smoking Current Yes Impressions: Findings: Bilateral carotid system are essentially normal. Recommendations: After imaging the patient returned home. Findings Carotid Duplex: Jones scale imaging combined with Doppler flow analysis suggests normal findings bilaterally. Right: The right proximal common carotid artery has a PSV of 165 cm/s and a EDV of 18 cm/s. The right mid common carotid artery has a PSV of 74 cm/s and a EDV of 13 cm/s. The right distal common carotid artery has a PSV of 68 cm/s and a EDV of 19 cm/s. The right bifurcation has a PSV of 55 cm/s and a EDV of 10 cm/s. The right proximal internal carotid artery has a PSV of 46 cm/s and a EDV of 19 cm/s. The right mid internal carotid artery has a PSV of 91 cm/s and a EDV of 32 cm/s. The right distal internal carotid artery has a PSV of 95 cm/s and a EDV of 30 cm/s. The right eca has a PSV of 144 cm/s and a EDV of 11 cm/s. The right vertebral artery has a PSV of 42 cm/s and a EDV of 14 cm/s. Left: The left proximal common carotid artery has a PSV of 159 cm/s and a EDV of 16 cm/s. The left mid common carotid artery has a PSV of 87 cm/s and a EDV of 18 cm/s. The left distal common carotid artery has a PSV of 77 cm/s and a EDV of 13 cm/s. The left bifurcation has a PSV of 65 cm/s and a EDV of 15 cm/s. The left proximal internal carotid artery has a PSV of 50 cm/s and a EDV of 12 cm/s. The left mid internal carotid artery has a PSV of 93 cm/s and a EDV of 29 cm/s. The left distal internal carotid artery has a PSV of 104 cm/s and a EDV of 35 cm/s. The left eca has a PSV of 93 cm/s and a EDV of 13 cm/s. The left vertebral artery has a PSV of 51 cm/s and a EDV of 11 cm/s. Prior Study: No prior study available for comparison. Carotid Results Right PSV EDV Assessment Proximal CCA 165 18 Normal Mid CCA 74 13 Normal Distal CCA 68 19 Normal Bifurcation 55 10 Normal Proximal ICA 46 19 Normal Mid ICA 91 32 Normal Distal ICA 95 30 Normal ECA 144 11 Normal Vertebral Artery 42 14 Normal Left PSV EDV Assessment Proximal CCA 159 16 Normal Mid CCA 87 18 Normal Distal CCA 77 13 Normal Bifurcation 65 15 Normal Proximal ICA 50 12 Normal Mid ICA 93 29 Normal Distal ICA 104 35 Normal ECA 93 13 Normal Vertebral Artery 51 11 Normal Ratio's Right ICA/CCA Ratio: 1.28 ICA/CCA Values: 95/74 Left ICA/CCA Ratio: 1.20 ICA/CCA Values: 104/87 Updated by Migel Juilan MD, FACS on 06/28/2016 12:32:41 PM Migel Julian MD electronically signed on 06/28/2016 12:33:14 PM with status of Final
--- NOTE | 2016-06-28 16:59 | Internal Med Progress Note ---
Date of Encounter: 06/28/16 Time of Encounter: 16:57 - Assessment and plan (1) Stroke Current Visit: Yes Status: Suspected Assessment and plan: ASA/statin -PT/OT/ST -Awaiting for imaging studies. -Neurology evaluation: Young stroke workup -Sliding scale for now. for newly onset diabetes. -We will follow neurology recommendations. -DVT prophylaxis: Lovenox Qualifiers: CVA mechanism: unspecified Qualified Code(s): I63.9 - Cerebral infarction, unspecified (2) New onset type 2 diabetes mellitus Current Visit: Yes Status: Acute Assessment and plan: paraeducator to see the patient. (3) Hypertension Current Visit: Yes Status: Acute Assessment and plan: We will start on lisinopril. Tomorrow Qualifiers: Hypertension type: essential hypertension Qualified Code(s): I10 - Essential (primary) hypertension (4) Obesity, morbid, BMI 40.0-49.9 Current Visit: Yes Status: Acute Assessment and plan: Patient will benefit from a bariatric surgery evaluation. - Subjective Interval history: Seen and examined. Chart reviewed. Patient is very keen to go home. Patient does not have any education regarding diabetes management. Patient needs to know more about insulin administration. Patient's A1c is 12.7 - Constitutional Vitals: Temp Pulse Resp BP Pulse Ox 98.3 F 51 16 136/75 97 06/28/16 07:00 06/28/16 07:00 06/28/16 07:00 06/28/16 07:00 06/28/16 07:00 General appearance: Present: A&O X 3, no acute distress, obese, answers questions appropriately - Head Head exam: Present: atraumatic, normocephalic - Eye Eye exam: Present: PERRL, conjuntiva pink, sclera anicteric Pupils: Present: PERRL - Neck Neck exam general surgery: Present: supple, trachea midline. Absent: lymphadenopathy - Respiratory Respiratory exam: Present: CTAB. Absent: accessory muscle use, rales, rhonchi, wheezes - Cardiovascular Cardiovascular exam: Present: RRR, +S1, +S2. Absent: diastolic murmur, gallop, rubs, systolic murmur - GI/Abdominal GI/Abdominal exam: Present: normal bowel sounds, soft, no peritoneal signs. Absent: distended, tenderness - Extremities Exam Extremities exam: Present: warm, radial pulses palpable and symetrical. Absent : calf tenderness, cyanotic, pedal edema - Neurological Exam Neurological exam: Present: CN II-XII intact, oriented X3, no focal deficits. Absent: pronater drift, facial droop, speech deficit - Skin Skin exam: Present: dry, intact Internal Medicine: Result - Labs CBC & Chem 7: 06/28/16 05:15 06/28/16 05:15 Labs: Short CBC 06/28/16 Range/Units 05:15 WBC 8.6 (4.3-11.1) K/mcL Hgb 15.2 D (12.9-16.9) g/dL Hct 45.0 (37.5-50.1) % Plt Count 158 (140-400) K/mcL Neutrophils # 5.4 (1.6-8.9) K/mcL BMP 06/28/16 05:15 Sodium 139 Potassium 3.9 Chloride 110 H Carbon Dioxide 20 BUN 13 Creatinine 0.78 Glucose 240 H Calcium 8.2 L Liver Function 06/28/16 Range/Units 05:15 Total Bilirubin 1.0 (0.2-1.2) mg/dL AST 31 (5-34) Units/L ALT 47 (0-55) Units/L Alkaline Phosphatase 66 (38-126) Units/L Albumin 2.9 L (3.5-5.0) g/dL - ABG Interpretation ABG results: PT/INR, D-dimer PT 13.2 Seconds (9.4-12.1) H 06/27/16 01:44 Consult Discharge Plan - Plan Referrals: NO,PCP [Primary Care Provider] -
[2016-06-28] MEDS ORDERED: Insulin DETEMIR 100 UNIT/ML X5UNITS SQ SCH (21:00)
[2016-06-29 05:14] VITALS: BP 141/95
[2016-06-29] MEDS: *HR* Enoxaparin 40 MG/0.4 ML SYRINGE SQ SCH (06:27)
--- NOTE | 2016-06-29 08:31 | Discharge Summary ---
Date of Encounter: 06/29/16 Time of Encounter: 08:24 - Discharge Diagnosis (1) Stroke Priority: Primary Status: Suspected Qualifiers: CVA mechanism: unspecified Qualified Code(s): I63.9 - Cerebral infarction, unspecified (2) New onset type 2 diabetes mellitus Priority: Primary Status: Acute (3) Hypertension Priority: Secondary Status: Acute Qualifiers: Hypertension type: essential hypertension Qualified Code(s): I10 - Essential (primary) hypertension (4) Obesity, morbid, BMI 40.0-49.9 Priority: Secondary Status: Acute - Discharge Medications Prescriptions: Aspirin Enteric Coated [Aspirin EC] 81 mg PO DAILY #30 tablet. Atorvastatin [Lipitor] 40 mg PO HS #30 tablet Insulin DETEMIR [Levemir] 20 unit SQ HS #4 [id number] Insulin LISPRO [HumaLOG] 0 units SQ HS #1 vial Insulin LISPRO [HumaLOG] 0 units SQ TIDAC #1 vial Lisinopril 2.5 mg PO DAILY #30 tablet Home Medications: Ascorbate Calcium [Vitamin C] 500 mg PO DAILY 06/26/16 [History] Cholecalciferol (D-3) [Vitamin D] 1,000 unit PO DAILY 06/26/16 [History] Multivitamin [Multi-Day Vitamins] 1 each PO DAILY 06/26/16 [History] Ranitidine HCl [Zantac 75] 75 mg PO DAILY 06/26/16 [History] Vitamin B Complex 1 each PO DAILY 06/26/16 [History] Aspirin Enteric Coated [Aspirin EC] 81 mg PO DAILY #30 tablet. 06/29/16 [Rx] Atorvastatin [Lipitor] 40 mg PO HS #30 tablet 06/29/16 [Rx] Insulin DETEMIR [Levemir] 20 unit SQ HS #4 [id number] 06/29/16 [Rx] Insulin LISPRO [HumaLOG] 0 units SQ HS #1 vial 06/29/16 [Rx] Insulin LISPRO [HumaLOG] 0 units SQ TIDAC #1 vial 06/29/16 [Rx] Lisinopril 2.5 mg PO DAILY #30 tablet 06/29/16 [Rx] Allergies/Adverse Reactions: Allergies No Known Allergies Allergy (Verified 06/26/16 10:40) Procedures/tests Complete & Pending: Procedures Performed prior 72 hours Category Date Time Status CT angio neck [CT] Routine Cat Scan 06/27/16 15:30 Completed Date of admission: 06/27/16 04:21 Primary care physician: PCP NO Consults: 06/27/16 04:34 Consult to Neurology [CONS] Routine Consulting Provider: Neurology [facility] Reason for Consult: stroke symptoms Call Completed: No Consult to Occupational Therapy [CONS] Routine Comment: Evaluate, develop and implement POC Consult to Physical Therapy [CONS] Routine Comment: Evaluate, develop and implement POC 06/28/16 11:17 Consult to Senior Audit Manager [CONS] Routine Reason for SW Consult: PT recommending inpt swing bed Discharging clinician: Stas Singer - Patient Status Disposition: Home, Self-Care Condition: Serious Functional capacity at discharge: independent ambulation Overall status at discharge: patient is progressing back to baseline - Discharge Instructions Follow Up With: NO,PCP [Primary Care Provider] - Abhishek Elkins DO [Resident] - Iris Goyal MD [Partnered Physician] - - Diet and Activity Activity: increase activity as tolerated Diet: diabetic diet Interval History: Mr. Rodriguez is a 41 year old male c/o weakness. PMHx GERD, on and off smoker of 1 /2-1ppd for about 15 years, does not see PCP. Pt c/o right sided weakness, with dizziness starting in the morning on . Pt states he woke up around 6: 30 am feeling fine, as he was getting ready for work he started getting a headache, feeling dizzy and tingling around his mouth and was having difficulty getting dressed secondary to weakness. Pt thought his blood sugar might my low, had breakfast and drank a pop which made symptoms worse. He presented to [place] [facility]. After being given fluids he states symptoms did not fully resolve but he felt better so he left AMA. At home a few hours later symptoms were worse with increased weakness from earlier in the day and slurring of his speech. Pt states he has never had anything like this before, but has had some numbness and metallic taste in his mouth for about one week which he attributed to his reflux. Pt does not see a physician and has never had any previous diagnosis. Pt continues to have right sided weakness, and decreased sensation and difficulty controlling his r arm. headache has somewhat resolved, continues to have some dizziness and rightsided numbness. Pt denies LOC, loss of vision, chest pain, palpitation, SOB, change in urinary or bowel habits. Hospital course: Patient was hospitalized. CT head: No evidence of hemorrhage. MRI: Acute left pontine infarct Head CTA: Within normal limits, no obvious obstructive lesions. Ultrasound carotids: No significant stenosis 2-D echo: Within normal limits, ejection fraction more than 50% Patient was seen by neurology. Neurology will do than stroke workup as outpatient. Patient is new case of diabetes mellitus. He was seen by tipping machine operator. Extensive education was done in terms of insulin administration. Plan: Patient can go home today. Aspirin/statin prescribed. Patient refused to go for inpatient/outpatient physical therapy. Patient will have a follow-up with residency clinic as he does not have a primary care provider. Patient will have a follow-up with the neurology in 1-2 weeks for outpatient hypercoagulable workup QUESTIONS answered. At the time of discharge patient does not have any question concerned, question, update or recommendations regarding his hospitalization. - Time Spent with Patient Total time spent providing and/or coordinating discharge services: - Constitutional Vitals: Temp Pulse Resp BP Pulse Ox 98.6 F 52 19 141/95 97 06/29/16 05:13 06/29/16 05:13 06/29/16 05:13 06/29/16 05:13 06/29/16 05:13 General appearance: Present: A&O X 3, no acute distress, obese, answers questions appropriately - Head Head exam: Present: atraumatic, normocephalic - Eye Eye exam: Present: PERRL, conjuntiva pink, sclera anicteric Pupils: Present: PERRL - Neck Neck exam general surgery: Present: supple, trachea midline. Absent: lymphadenopathy - Respiratory Respiratory exam: Present: CTAB. Absent: accessory muscle use, rales, rhonchi, wheezes - Cardiovascular Cardiovascular exam: Present: RRR, +S1, +S2. Absent: diastolic murmur, gallop, rubs, systolic murmur - GI/Abdominal GI/Abdominal exam: Present: normal bowel sounds, soft, no peritoneal signs. Absent: distended, tenderness - Extremities Exam Extremities exam: Present: warm, radial pulses palpable and symetrical. Absent : calf tenderness, cyanotic, pedal edema - Neurological Exam Neurological exam: Present: CN II-XII intact, oriented X3, no focal deficits. Absent: pronater drift, facial droop, speech deficit - Skin Skin exam: Present: dry, intact
[2016-06-29] MEDS: Insulin LISPRO 300 UNITS/3 ML VIAL SQ SCH ×2 (08:44→12:49)
[2016-06-29] MEDS: Aspirin Enteric Coated 81 MG Tablet PO SCH (08:44)
[2016-06-29] MEDS: Famotidine 20 MG TABLET PO SCH (08:44)
[2016-06-29] MEDS: Nicotine 14 MG PATCH.TD24 TD SCH (08:44)
[2016-06-29 17:27] LABS: APTT (LE Anticoag) 38 sec (32-48); Diluted Russell Viper Venom 29 sec (33-44); PT (LE-Anticoag) 13.7 sec (12.0-15.5)
[2016-07-02 07:44] LABS: Antithrombin III, Activity 71 % (76-128); Protein S Antigen, Total 109 % (84-134)
[2016-07-04 08:23] LABS: A1286C MTHFR Mutation NEGATIVE; C665T MTHFR Mutation HETEROZYGOUS; MTHFR Specimen Type WHOLE BLOOD
== END 2016-06-29 14:05 | disposition home or self-care (01) | DRG 65 ==
LOC: EMEROO 17:02 → 2NENU 17:02
PROVIDERS: ADMIT Internal Medicine; ATTEND Internal Medicine